=== PATIENT | female | born 1995 | race Caucasian/White ===

== ENCOUNTER 2024-10-22 09:51 | Day surgery (SDC) | payer OTHER ==
[2024-10-20 09:35] LABS: Absolute Eosinophils 0.1 K/uL (0-0.5); Absolute Lymphocytes (CBC) 2.6 K/uL (0.7-4.9); Absolute Monocytes 0.5 K/uL (0.1-1.3); Absolute Neutrophil 3.7 K/uL (1.8-8.0); Basophils % 0.5 % (0-1.3); Eosinophils % 0.9 % (0-4.4); Hematocrit 43.3 % (36.0-45.0); Hemoglobin 14.3 g/dL (12.0-15.0); Lymphocytes % 37.4 % (15.3-44.8); MCH 28.6 pg (27.0-35.0); MCHC 33.1 g/dL (32.0-36.0); MCV 86.4 fL (80-100); MPV 10.2 fL (7.6-11.3); Neutrophils % 54.2 % (41.7-73.7); Nucleated Red Blood Cells % 0.2 % (0-0); Platelets 314 thou/uL (152-406); RBC Red Blood Cell Count 5.01 M/uL (3.86-4.86); Red Cell Distribution Width 13.5 % (12.1-15.2)
[2024-10-20 09:36] LABS: Specific Gravity 1.025 (1.005-1.030); Urine Bilirubin NEGATIVE (Negative); Urine Blood Negative (Negative); Urine Clarity Clear (Clear); Urine Color Yellow (Yellow); Urine Glucose NEGATIVE (Negative); Urine Ketones NEGATIVE (Negative); Urine Microscopic Reflex YN NO UMIC; Urine Nitrite NEGATIVE (Negative); Urine Protein NEGATIVE (Negative); Urine Urobilinogen Normal (Normal); Urine pH 6.5 (5.0-7.0)
[2024-10-22] MEDS: Ringers Lactate 1,000 ML IV ONE (09:51)
[2024-10-22] MEDS: SCOPOLAMINE HYDROBROMIDE PATCH TD ONE (10:30)
[2024-10-22 10:37] VITALS: O2SAT 100
[2024-10-22] MEDS: METHYLENE BLUE 1% 10 ML VIAL ONE (12:13)
[2024-10-22] MEDS: BUPIVACAINE 0.25% PF 30 ML VIAL ONE (12:13)
[2024-10-22] MEDS ORDERED: KETOROLAC 30 MG/ML INJ ONE (12:48)
[2024-10-22] MEDS ORDERED: LIDOCAINE 2% MPF 5 ML VIAL ONE (12:48)
[2024-10-22] MEDS ORDERED: FENTANYL CITR 100 MCG/2 ML ONE (12:48)
[2024-10-22] MEDS ORDERED: propofoL 200 MG/20 ML VIAL IV ONE (12:48)
[2024-10-22] MEDS ORDERED: MIDAZOLAM HCL 2 MG/2 ML INJ ONE (12:48)
[2024-10-22] MEDS ORDERED: dexAMETHasone 4 MG/ML VIAL ONE (12:48)
[2024-10-22] MEDS ORDERED: ONDANSETRON 4 MG/2 ML VIAL ONE (12:48)
[2024-10-22] MEDS ORDERED: ROCURONIUM 50 MG/5 ML VIAL IV ONE (12:48)
[2024-10-22] MEDS: IBUPROFEN 400 MG TAB ONE (15:42)
[2024-10-22 16:25] VITALS: BP 114/73; TEMP 97.7
--- NOTE | 2024-10-22 19:53 | OP ---
Date of Procedure: 10/22/2024 Surgeon: Alisha Terrazas MD Principal Cloud Architect: Ihsa Puckett. Preoperative Diagnoses: Irregular heavy periods, dysmenorrhea, dyspareunia, premenstrual pelvic pain . Postoperative Diagnoses: Irregular heavy periods, dysmenorrhea, dyspareunia, premenstrual pelvic ru n and endometriosis, left ovarian fibroma. Procedures Performed: 1.Diagnostic hysteroscopy. 2.Diagnostic laparoscopy, chromotubation, endometriosis excision, left ovarian fibroma removal. 3.Left ureterolysis. Anesthesia: General endotracheal anesthesia. Specimens: Left lateral wall, paraureteral endo, then left ovarian fibroma, right lateral wall, and left pararectal space endo. Complications: No complications. Drains: No drains. Condition: Patient's condition stable. Estimated Blood Loss: 50. Findings: Endometriosis was found significantly in the left lateral wall starting in the periureteri c region and distal portion of the tube was adhered to the lateral pelvic sidewall between the IP and the ureter. Then, the implants were present on the peritoneum along the ureter and the distal most portion mostly between the ureter and the uterosacral ligament going up towards the uterine vessels a nteriorly. There is a right lateral wall brownish discoloration lateral to the ureter in the mid pel vis on the sidewall. Hemosiderin deposits were noted, but no apparent endometriosis was noted. Then , right pararectal space was unremarkable. Left pararectal space, however, had endometriosis in the Ben-Master sinus. All the endometriotic implants that were visualized were removed. Left ovarian fibroma was removed. On chromotubation, both tubes were patent. On hysteroscopy, the cavity was unremarkable. Indications: The patient is a 29-year-old who had an IUD that was removed and progressively increasi ng pelvic pain and premenstrual pelvic pain especially 1 week prior that is much worse than the dysme norrhea, which occurs during the week off the period. The dyspareunia has been progressive and the m ost recent times, it has been lasting for a few days after the sexual intercourse. Periods are mostl y monthly but slightly irregular with at least 1 to 1-1/2 days each period are heavy with clots. The patient has been treated with an IUD with unsatisfactory results and resolution of pain. Endometria l sampling was performed after IUD was removed and this did not show any endometritis. Discussed about medical treatment options of GnRH antagonist or continued oral contraceptive pills an d these were prescribed. Alternative was to have diagnostic hysteroscopy, laparoscopy in order for u s to diagnose any uterine anomalies or most importantly endometriosis. The patient understood the be nefits and risks of each of her alternatives and of the procedures and consented. Description Of Procedure: After informed consent was re-verified in the preoperative area, she was t aken back to the OR. Her partner was present by her side and all questions were done to their satisf action. She was placed in a supine fashion on the operating table. General anesthesia was given. She was pl aced in a dorsal lithotomy position using Ben stirrups. Arms tucked by the side. Abdomen prepped with ChloraPrep; vulva, vagina, and perineum with Betadine and draped in a sterile fashion. Trammell wa s placed to drain the bladder. Speculum was placed to expose the cervix. Diagnostic hysteroscopy: Anterior lip grasped with 2 Allis clamps and diagnostic SlimLine hysterosco pe passed through the cervical canal into the uterine cavity without any problems. Cavity was small and unremarkable. No anomalies. No intracavitary lesions. Endometrium appeared to be unremarkable. Scope removed and a diagnostic uterine manipulator was introduced into the uterus and fixed in plac e. Trammell was used to drain the bladder and this was draped. A 1 cm infraumbilical incision made with a scalpel using the open laparoscopy technique after injecti ng with 0.25% bupivacaine. An 11 blade was used to make a curvy incision through the skin and subcut aneous tissues. Fat was dissected down to the fascia. Fascia incised with a monopolar Bovie. The e dges of the fascia were held with Kochers and fascia incised completely full thickness and the perito neum picked up and entered bluntly. After tagged 0 Vicryl sutures were placed on both the edges and these were attached to the Ervin, then the patient was placed in T-steven after adequate insufflation of the abdominal cavity was inspected and the liver, gallbladder, opposite side stomach, and rest of the upper abdominal organs were completely unremarkable. Patient was then examined in the pelvis aft er placing the three 5 ports, one in the left lower, other in the right lower quadrant, and one in th e suprapubic region. Please review the findings for endometriosis. This was present on the left lat eral wall periureteric area with scar tissue here, retroperitoneal fibrosis was noted and the distal portion of the tube on the left side was adhered to the posterior broad ligament where the endometrio sis implant was present and therefore to rule out any tubal occlusion, chromotubation was performed. Chromotubation with methylene blue: 1 ampule of methylene blue was diluted in 50 cc of normal saline and injected through the uterine manipulator. There was a quick spill on both sides, right one firs t, and then on the left without any evidence of dilatation. Left ovarian cystectomy: At the left ovarian medial portion close to the utero-ovarian ligament show ed a fibroma and this was excised with the help of the LigaSure and removed. This was handed off for permanent pathology. Endometriosis excision: Endometriosis of the left lateral wall was taken down. The dissection start ed above the level of the pelvic brim and at first the implant was present at the distal portion of t he tube attached to the base of the IP ligament. The peritoneum was opened sharply between the IP an d the implant. The implant was then excised fully. Then, lateral wall peritoneum was opened up. Th en lateral wall peritoneum was stripped from the lateral wall all the way to the medial aspect, the l ateral aspect of the left uterosacral ligament. There was some bleeding from the uterine vessels, no t the main vessels but supplementary vessels and these were cauterized with the bipolar instrument an d then endometriosis excised and handed out. Left retroperitoneal fibrosis and left ureterolysis: Left ureter was opened up from its sheath in th e medial leaf of the broad ligament. After incision was made superior and lateral to the ureter, the lateral portion of the ureter was identified from the pelvic brim to the ureteric tunnel. Then, the medial portion was from the medial leaf of the broad ligament by opening up the fibroconne ctive tissue that was vascular as well endometriotic implants were present that had scar bridging ove r the ureter, which were carefully taken down and the entire endometriotic scar was excised and the u reterolysis was performed till the level of the ureteric tunnel. The ureter had no evidence of elect rical, mechanical, or thermal injury to them and thorough irrigation and suction was performed and he mostasis was secured. Endometriosis excision of the left pararectal space and the area between the pararectal Ben-Master sinus endometriosis and the uterosacral ligament were opened up and the circumferential peritoneal in cision was made with the help of the LigaSure and then from the pararectal space down to the pelvic d iaphragm, the endometriotic implant with scar was excised and handed off for permanent pathology. Right lateral wall lateral to the mid pelvic ureter, hemosiderin implants were present and since this is a symmetric region in which endometriosis was found on the opposite side, I chose to open the per itoneum here, excise the peritoneum, and handed out for permanent pathology with a hemosiderin pigmen t on. No other implants were noted on close observation in the broad ligaments, anterior cul-de-sac, and the rest of the pelvic area. Thorough irrigation and suction were performed. All the trocars were removed under direct vision. G as was desufflated. Fascia was closed with the tag 0 Vicryl sutures tied to each other and 4-0 Monoc ryl sutures interrupted for all skin incision closures. Uterine manipulator and Trammell were removed. Instrument, needle, and sponge counts were correct. Steri-Strips and 4 x 4's and Tegaderm were placed. She was recovered from anesthesia and taken to PACU in stable condition. She will follow up with me in 1 week and in 3 months. DENTON/EMMA Voice ID: [id number] Report ID: [id number]
== END 2024-10-22 16:29 | disposition home or self-care (01) ==
LOC: OR 09:51
PROVIDERS: ATTEND Obstetrics & Gynecology
PROC: 0WBF4ZZ Excision of Abdominal Wall, Percutaneous Endoscopic Approach (ICD-10-PCS; 2024-10-22)
PROC: 0TN74ZZ Release Left Ureter, Percutaneous Endoscopic Approach (ICD-10-PCS; 2024-10-22)
PROC: 0UB14ZZ Excision of Left Ovary, Percutaneous Endoscopic Approach (ICD-10-PCS; 2024-10-22)
PROC: 0UJD8ZZ Inspection of Uterus and Cervix, Via Natural or Artificial Opening Endoscopic (ICD-10-PCS; principal; 2024-10-22 11:30)
DX: N94.10 Unspecified dyspareunia (principal); N94.6 Dysmenorrhea, unspecified; R10.2 Pelvic and perineal pain; D27.1 Benign neoplasm of left ovary; N80.3C2 Endometriosis of the left uterosacral ligament, unspecified depth; N80.A62 Endometriosis of left ureter, unspecified depth; N80.C19 Endometriosis of the anterior abdominal wall, unspecified depth
CPT/HCPCS: 85025; 36415; 86900; 86850; 81025; 86901; 88305; 81003; 58555; 58662 ×2; 50949; J2704; J1100; J2003; J2250; J3010; J2405; J7120